=== PATIENT | male | born 1970 | race Caucasian/White ===

== ENCOUNTER 2021-11-11 04:09 | Emergency (ER) | payer OTHER, SELFPAY ==
--- NOTE | ~2021-11-11 | CT_ITS ---
EXAMINATION: CT abdomen pelvis wo con DATE: 11/11/2021 09:20 INDICATION: Left flank pain. TECHNIQUE: Computed tomography (CT) of the abdomen and pelvis was performed without intravenous contr ast. Automated exposure control and iterative reconstruction technique were employed. The dose-length product was 1457.67 mGy-cm. COMPARISON: CT abdomen and pelvis 04/20/2017 FINDINGS: The visualized portions of the lung bases demonstrate minimal atelectasis. No pleural effus ion. The heart size is normal. No pericardial effusion. There is a small sliding hiatal hernia. There is diffuse hepatic steatosis. The gallbladder, spleen, pancreas, and adrenal glands are normal. Ther e are two 2 mm stones in left kidney. There are 5 stones in left kidney measuring up to 2 mm. There i s mild left hydronephrosis and hydroureter. There is a 2 mm stone at left ureterovesicular junction. There is diverticulosis of the colon without evidence of diverticulitis. There are no dilated loops o f bowel. The appendix is normal. There are no pathologically enlarged lymph nodes. There is no free i ntraperitoneal fluid. There is dextrocurvature of thoracolumbar spine. There is mild thoracolumbar sp ondylosis. There are hemangiomas in L1 and L3 vertebral bodies. IMPRESSION: 1. 2 mm stone at left ureterovesicular junction with mild left hydronephrosis and hydroureter. 2. Small bilateral nonobstructing kidney stones. Reviewed, dictated and finalized at location A. FING ADMINISTRATOR IMPRESSION: 1. 2 mm stone at left ureterovesicular junction with mild left hydronephrosis a nd hydroureter. 2. Small bilateral nonobstructing kidney stones.
[2021-11-11 04:13] VITALS: BP 138/105; PULSE 67; RESP 18; TEMP 36.3; O2SAT 97
[2021-11-11 06:33] VITALS: BP 128/94; PULSE 83; RESP 18; O2SAT 98
[2021-11-11 08:24] VITALS: BP 139/101; PULSE 77; RESP 18; TEMP 36.9; O2SAT 99
[2021-11-11] MEDS: SODIUM CHLORIDE 0.9% IV 1,000 ML 999 ML IV CONT (09:11)
[2021-11-11] MEDS: KETOROLAC 30 MG/ML VIAL (*BKC) IV PUSH (09:11)
[2021-11-11] MEDS: ONDANSETRON INJ 4 MG/2 ML VIAL IV PUSH (09:11)
[2021-11-11 09:25] LABS: Basophils Absolute Auto 0.1 K/mm3 (0.0-0.1); Basophils Percent Auto 0.5 % (0.2-1.2); Eosinophils Absolute Auto 0.1 K/mm3 (0-0.3); Eosinophils Percent Auto 1.2 % (0-4.4); Hematocrit 45.1 % (42.0-52.0); Hemoglobin 15.6 g/dL (14.0-18.0); Immature Granulocyte Absolute 0.08 K/mm3 (0.00-0.031); Immature Granulocyte Percent A 0.7 % (0-0.5); Lymphocytes Absolute Auto 3.49 K/mm3 (0.9-3.2); Lymphocytes Percent Auto 30.5 % (18.3-44.2); Mean Corpuscular HGB Conc 34.6 g/dl (32-36); Mean Corpuscular Hemoglobin 30.5 pg (26-34); Mean Corpuscular Volume 88.1 fl (80-100); Monocytes Absolute Auto 1.7 K/mm3 (0.1-0.6); Monocytes Percent Auto 14.4 % (2.6-8.5); Neutrophils Percent Auto 52.7 % (45.5-73.1); Platelet Count Result 308 k/mm3 (150-375); Red Blood Count 5.12 M/mm3 (4.6-6.20); Red Cell Distribution Width 13.1 % (11.5-14.5); White Blood Count 11.5 K/mm3 (4.5-10.0)
[2021-11-11 09:35] LABS: Alanine Aminotransferase 47 U/L (4-50); Albumin Level 4.5 g/dL (3.5-5.1); Alkaline Phosphatase 118 U/L (38-126); Anion Gap 13 mmol/L (8-16); Aspartate Amino Transferase 32 U/L (17-59); Bilirubin,Total 0.8 mg/dL (0.2-1.3); Blood Urea Nitrogen 14 mg/dL (9-20); Calcium 9.5 mg/dL (8.4-10.2); Carbon Dioxide 24 mmol/L (22-30); Chloride 99 mmol/L (98-107); Estimated CRCL calculation 99 ml/min; Estimated Glomerular Filt Rate > 60; Glucose 121 mg/dL (65-110); Potassium 4.3 mmol/L (3.4-5.0); Sodium 136 mmol/L (137-145)
--- NOTE | 2021-11-11 11:10 | ED.GENADULT ---
HPI - General Adult General Chief complaint: Urogenital-Male Stated complaint: low back pain, hx of kidney stones Time Seen by Provider: 11/11/21 09:01 History of Present Illness HPI narrative: Patient is a 51-year-old male who presents ER with sudden onset flank pain. Left side. Radiating into the back and into groin. Unable to urinate. No dysuria or hematuria. No fevers chills or sweats. No alleviating factors. Denies fevers or chills or sweats. No nausea or vomiting. Related Data Allergies Allergy/AdvReac Type Severity Reaction Status Date / Time No Known Allergies Allergy Verified 11/11/21 08:27 Review of Systems Review of Systems: All systems reviewed & are unremarkable except as noted in HPI and below Constitutional: Constitutional: Denies chills, Denies fever(s) and Denies weakness ENT: Denies nasal congestion and Denies sore throat Gastrointestinal: Gastrointestinal: Reports abdominal pain, Denies diarrhea, Denies nausea and Denies vomiting Genitourinary: Genitourinary: Reports oliguria, Denies dysuria and Denies urinary frequency Musculoskeletal: Musculoskeletal: Denies back pain, Denies arthralgias and Denies joint swelling PMFSH Past Medical History Medical History (Updated 11/11/21 @ 12:26 by Shaq Maloney MD) Kidney stones Surgical History Surgical History (Updated 11/11/21 @ 11:11 by Shaq Maloney MD) No history of previous surgery Exam Narrative: GENERAL: Uncomfortable-appearing, well-nourished, and in mild distress. HEAD: Normocephalic, atraumatic. ENT: Mucous membranes moist. CHEST: Clear to auscultation. No respiratory distress. HEART: Regular rate and rhythm. Normal peripheral pulses. ABDOMEN: Soft, nontender, nondistended. EXTREMITIES: Normal range of motion. No edema. SKIN: Warm, dry, no rash. NEURO: Alert and oriented x3. PSYCH: Normal mood and affect. Course Reevaluation(s) Reevaluation #1: Pain significantly improved with Toradol. Patient being hydrated. Will provide us with a urine. Date: 11/11/21 Time: 11:12 Reevaluation #2: Discussed with urology. Will place on oral antibiotic and discharge home. Return precautions discussed. Date: 11/11/21 Time: 12:25 Vital Signs Vital signs: Vital Signs Temperature 97.4 F L 11/11/21 04:13 Pulse Rate 67 11/11/21 04:13 Respiratory Rate 18 11/11/21 04:13 Blood Pressure 138/105 H 11/11/21 04:13 Pulse Oximetry 97 11/11/21 04:13 Temperature 98.4 F 11/11/21 08:24 Pulse Rate 77 11/11/21 08:24 Respiratory Rate 18 11/11/21 08:24 Blood Pressure 139/101 H 11/11/21 08:24 Pulse Oximetry 99 11/11/21 08:24 Medical Decision Making Vital Signs Vital Signs: Vital Signs Temperature 97.4 F L 11/11/21 04:13 Pulse Rate 67 11/11/21 04:13 Respiratory Rate 18 11/11/21 04:13 Blood Pressure 138/105 H 11/11/21 04:13 Pulse Oximetry 97 11/11/21 04:13 Temperature 98.4 F 11/11/21 08:24 Pulse Rate 77 11/11/21 08:24 Respiratory Rate 18 11/11/21 08:24 Blood Pressure 139/101 H 11/11/21 08:24 Pulse Oximetry 99 11/11/21 08:24 Lab Data Result diagrams: 11/11/21 09:14 11/11/21 09:14 Labs: Lab Results 11/11/21 11/11/21 11/11/21 Range/Units 09:14 09:14 11:18 WBC 11.5 H (4.5-10.0) K/mm3 RBC 5.12 (4.6-6.20) M/mm3 Hgb 15.6 (14.0-18.0) g/dL Hct 45.1 (42.0-52.0) % MCV 88.1 (80-100) fl MCH 30.5 (26-34) pg MCHC 34.6 (32-36) g/dl RDW 13.1 (11.5-14.5) % Plt Count 308 (150-375) k/mm3 MPV 10.0 (7.4-10.4) fl Immature Gran % (Auto) 0.7 H (0-0.5) % Neut % (Auto) 52.7 (45.5-73.1) % Lymph % (Auto) 30.5 (18.3-44.2) % [place] % (Auto) 14.4 H (2.6-8.5) % Eos % (Auto) 1.2 (0-4.4) % Baso % (Auto) 0.5 (0.2-1.2) % Lymph # (Auto) 3.49 H (0.9-3.2) K/mm3 [place] # (Auto) 1.7 H (0.1-0.6) K/mm3 Eos # (Auto) 0.1 (0-0.3) K/mm3 Baso # (Auto) 0.1 (0.0-0.1) K/mm3 Abs
[2021-11-11 11:33] LABS: Add Urine Microscopic? YES; Appearance Urine Clear (Clear); Bacteria Urine Trace /hpf; Bilirubin Urine Negative (Negative); Blood Urine Negative (Negative); Color Urine Yellow (Yellow); Glucose Urine UA Negative (Negative); Ketones Urine 1+ mg/dL (Negative); Leukocyte Esterase Ur 3+ LEU/UL (Negative); Mucus Urine Rare /lpf; Nitrate Urine Negative (Negative); Protein Urine Negative (Negative); RBC Urine 21-50 /hpf (0-2); Specific Grav Ur 1.019 (1.001-1.035); Squamous Epithelial Cell Urine Rare /hpf (Few)
== END 2021-11-11 12:52 | disposition home or self-care (01) ==
PROVIDERS: Emergency Provider Emergency Medicine
DX: N20.1 Calculus of ureter (principal); N39.0 Urinary tract infection, site not specified
CPT/HCPCS: 36415; 74176; 80053; 81001; 85025; 87086; 96361; 96374; 96375; 99284; J1885; J2405; J7030

== ENCOUNTER 2024-03-29 10:07 | Observation (INO) | payer OTHER, SELFPAY ==
[2024-03-28 23:38] VITALS: BMI 37.6
--- NOTE | 2024-03-28 23:38 | ADMGEN ---
This patient, Josh Prabhakar, was admitted to Medical Room 347-. Patient/family oriented to hospital policies and general routines including ID bracelet, bed and alarms, visiting hours, pain management, procedures, bathroom and other care routines, personal items, smoking policy, room service/diet, and visiting hours. Information on how to activate the Rapid Response Team has been discussed. Patient/Family are encouraged to report perceived risks to care and to ask questions if they do not understand what they are told or what they should do.
[2024-03-29] VITALS (10 sets, daily range): BP systolic 92–152; BP diastolic 63–95; PULSE 63–82; RESP 12–20; TEMP 36.2–36.9; O2SAT 94–98
--- NOTE | ~2024-03-29 | CT_ITS ---
EXAMINATION: CT brain wo con DATE: 03/29/2024 09:48 INDICATION: Confusion. TECHNIQUE: Computed tomography (CT) of the head was performed without intravenous contrast. The mA wa s adjusted according to patient size. Iterative reconstruction technique was employed. The dose-lengt h product was 605.33 mGy-cm. COMPARISON: None FINDINGS: There are scattered areas of low attenuation in the cerebral white matter. There is no intr acranial hemorrhage, acute infarction, or abnormal intracranial mass lesion. The ventricles are mare l in size. The orbits are normal. There is mild mucosal thickening in the paranasal sinuses. The mast oid air cells are normal. IMPRESSION: 1. Mild nonspecific cerebral white matter disease, which likely represents chronic small vessel ische brendon disease. Reviewed, dictated and finalized at location A. IMPRESSION: 1. Mild nonspecific cerebral white matter disease, which likely represents donor relations manager janell small vessel ischemic disease.
--- NOTE | ~2024-03-29 | XR_ITS ---
EXAMINATION: XR retrograde pyelo w/stent LT DATE: 03/29/2024 12:57 INDICATION: Left ureteral stone. TECHNIQUE: 8 intraoperative fluoroscopic views of the abdomen and pelvis were obtained. I was not pre sent. Fluoroscopy exposure time was 71 seconds. COMPARISON: CT abdomen and pelvis 03/28/2024 FINDINGS: The left-sided retrograde pyelogram demonstrates mild left hydronephrosis and hydroureter. The final images demonstrate a left internal ureteral stent in expected position. IMPRESSION: 1. Mild left hydronephrosis and hydroureter. 2. Left internal ureteral stent in expected position. Reviewed, dictated and finalized at location A.
--- NOTE | 2024-03-29 00:02 | PM.IMHP ---
H&P: HPI History of Present Illness Date/Time: 03/29/24 00:02 Chief Complaint: back pain Narrative: patient is 63-year-old with history of hypertension history of kidney stones came to the hospital complaining of left flank pain patient was seen in urgent care center where patient's urine showed multiple rbc's with few WBCs patient's CT of the pelvis showed mild hydronephrosis patient was treated with pain control and nausea medications. No previous history of stones no fever chills nausea vomiting diarrhea hematemesis hemoptysis of dizziness with patient being seen by Dr. Langston with Urology notified at the time of transfer from [place] last Review of Systems Review of Systems: All systems reviewed & are unremarkable except as noted in HPI and below PMFSH Past Medical History Medical History (Updated 03/29/24 @ 00:05 by Norm Warner MD) Kidney stones Urinary tract infection Surgical History Surgical History (Updated 11/11/21 @ 11:11 by Shaq Maloney MD) No history of previous surgery Family History Family History (Updated 03/28/24 @ 23:59 by Irma Acuna RN) Father Depression Social History Social History Smoking packs per day: 0.3 Smoking cigarettes per day: 6.0 Years smoked: 5 Smoking pack-years: 1.50 Smoking status: Former smoker Tobacco type: cigarettes Alcohol intake: current Drinks per week: 1 Substance use: never Substance use type: does not use Do You Feel Safe in your Home?: Yes Lack of Transportation: No Lack of Food: Never True Current Housing: I Have Housing Concerned About Future Housing: No Difficulty Paying Gas/Electric Bills: No Difficulty Paying for Meds: No Currently Unemployed: No Education: Bachelor's Degree Difficulty w/ Childcare or Family Care: No Spiritual care concerns: No Meds Home Medications and Allergies Home Medications Medication Instructions Recorded Confirmed Type meloxicam 7.5 mg tablet 7.5 mg PO DAILY 03/28/24 03/28/24 History Allergies Allergy/AdvReac Type Severity Reaction Status Date / Time hydromorphone [From Dilaudid] AdvReac Confusion Verified 03/28/24 23:50 tramadol AdvReac Nausea and Verified 03/28/24 23:49 Vomiting Exam Narrative: GENERAL: Well appearing, no acute distress. HEAD: Normocephalic, atraumatic. NECK: Supple. No adenopathy, no masses. RESPIRATORY: respirations nonlabored. , no rales, wheezing. CARDIOVASCULAR: Regular rate and rhythm without murmurs, . Peripheral pulses 2+ and equal bilaterally. ABDOMINAL: Soft, nontender, nondistended, no hepatosplenomegaly. Normoactive BS. MUSCULOSKELETAL: no Epigastric and no hypochondrial tenderness SKIN: Warm, dry, NEURO: A&O X3. Moves all extremities Assessment and Plan Assessment and plan (1) Hydronephrosis: Code(s): N13.30 - Unspecified hydronephrosis Status: Acute Plan renal calculi/ hydronephrosis blood culture, Urine cultures and sensitivity. Continue IV hydration. Monitor CBC CMP monitor for sepsis. Monitor vital signs Start antibiotics IV levofloxacin Start probiotics to prevent antibiotic induced diarrhea Monitor for obstructive uropathy and pyelonephritis Dr. Hurtado urology consulted notified transfer. patient pain urology intervention in the morning currently patient well-controlled a uncomfortable will keep patient NPO history of hypertension controlled on diet Quality DVT prophylaxis. SCDs GI prophylaxis. All records reviewed Discussed plan of care with the nursing staff and with the patient in detail. Answered all questions and concerns from the patient. All labs have been reviewed. Code status updated dictation may have been done utilizing a voice recognition system. Attempts have been made to correct errors. However, there may be uncorrected grammatical, spelling, and recognition errors present.
[2024-03-29 00:43] LABS: Basophils Percent Auto 0.3 % (0.2-1.2); Eosinophils Percent Auto 0.1 % (0-4.4); Hematocrit 46.9 % (42.0-52.0); Hemoglobin 15.9 g/dL (14.0-18.0); Immature Granulocyte Absolute 0.07 K/mm3 (0.00-0.031); Immature Granulocyte Percent A 0.4 % (0-0.5); Lymphocytes Absolute Auto 3.06 K/mm3 (0.9-3.2); Lymphocytes Percent Auto 19.1 % (18.3-44.2); Mean Corpuscular HGB Conc 33.9 g/dl (32-36); Mean Corpuscular Hemoglobin 29.9 pg (26-34); Mean Corpuscular Volume 88.2 fl (80-100); Mean Platelet Volume 10.2 fl (7.4-10.4); Monocytes Absolute Auto 1.5 K/mm3 (0.1-0.6); Monocytes Percent Auto 9.3 % (2.6-8.5); Neutrophils Absolute Auto 11.3 K/mm3 (1.3-6.7); Neutrophils Percent Auto 70.8 % (45.5-73.1); Platelet Count Result 288 k/mm3 (150-375); Red Blood Count 5.32 M/mm3 (4.6-6.20); Red Cell Distribution Width 13.4 % (11.5-14.5)
[2024-03-29 00:53] LABS: Alanine Aminotransferase 36 U/L (6-50); Albumin Level 4.4 g/dL (3.5-5.1); Alkaline Phosphatase 87 U/L (38-126); Anion Gap 8 mmol/L (4-12); Aspartate Amino Transferase 31 U/L (17-59); Bilirubin,Total 0.6 mg/dL (0.2-1.3); Blood Urea Nitrogen 21 mg/dL (9-20); Carbon Dioxide 22 mmol/L (22-30); Chloride 105 mmol/L (98-107); Estimated CRCL calculation 79 ml/min; Estimated Glomerular Filt Rate 57; Glucose 106 mg/dL (65-110); Potassium 4.2 mmol/L (3.4-5.0); Sodium 135 mmol/L (137-145)
[2024-03-29] MEDS: SODIUM CHLORIDE 0.45% 1,000 ML 100 ML IV CONT ×2 (01:04→21:10)
[2024-03-29] MEDS: levoFLOXacin 750 MG/D5W 150 ML 750 MG/150 ML BAG 100 MG IVPB (01:05)
--- NOTE | 2024-03-29 01:53 | PC.NURSE ---
Pt is getting increasingly more confused. He doesnt know why hes here, how he got here, the yr ect. After trying to reorient him the whole conversation starts over. This continues repeatedly. At [address] Warner to update him of my concerns. I also called his at 0149 to see if this had happened before. She stated that it has not. Will continue to monitor.
[2024-03-29] MEDS: ACETAMINOPHEN 325 MG TABLET 650 MG PO (02:26)
--- NOTE | 2024-03-29 09:19 | PC.NURSE ---
Patient oriented on assessment but seems to have confusion about overnight events such as transportation to the hospital and why he is here. Assessment is negative otherwise. Classroom Paraprofessional reached out to hospitalistElsy. Head CT has been ordered
--- NOTE | 2024-03-29 09:23 | WPDURCON ---
Assessment and Plan Assessment and plan (1) Left ureteral stone: Code(s): N20.1 - Calculus of ureter Status: Acute Assessment and Plan: 5 mm distal left ureteral stone with [id number] hydronephrosis. Proceed with cystoscopy, left ureteroscopy, possible left stone extraction, possible laser lithotripsy, and possible left stent placement this afternoon with Dr. Hurtado. Continue NPO diet. (2) Hydronephrosis: Qualifiers: Hydronephrosis type: with ureteral calculous obstruction Qualified Code(s): N13.2 - Hydronephrosis with renal and ureteral calculous obstruction Code(s): N13.30 - Unspecified hydronephrosis Status: Acute Assessment and Plan: Left hydronephrosis secondary to above. Urology Consult Note HPI Date Seen: 03/29/24 Requesting Physician: Norm Warner MD Primary Care Provider: PHYSICIAN NOT ON STAFF Consult Narrative Narrative: Josh Prabhakar is a 53 year old male with a history of multiple prior kidney stones which have all passed spontaneously who initially presented to outside hospital on 03/28/2024 with acute onset of left flank pain with associated vomiting and dysuria. A CT of his abdomen/pelvis was completed at outside facility which demonstrated an obstructing 5 mm distal left ureteral stone with [id number] hydronephrosis as well as multiple nonobstructing left renal stones. His urinalysis had trace leukocytes and 2+ blood. His creatinine was within normal limits at 1.25. White blood cell count was within normal limits at 9.37. A urine culture was obtained and is pending at this time. Patient had intractable pain, and therefore was transferred to this facility for urologic evaluation. At the time of my evaluation, the patient is resting comfortably. He endorses some persistent left flank pain but denies nausea, vomiting, fever, chills. Denies dysuria. He does seem to be having some confusion regarding events of hospitalization, though he answers all questions appropriately. He is afebrile and his vital signs are stable. His white blood cell count is increased to 16.0. Creatinine remains stable. Given his persistent pain, will proceed with cystoscopy, left ureteroscopy with possible laser lithotripsy, possible stone extraction and left ureteral stent placement. Discussed risks and benefits of procedure with patient and he agrees to proceed. Review of Systems Review of Systems: All systems reviewed & are unremarkable except as noted in HPI and below PMFSH Past Medical History Medical History (Updated 03/29/24 @ 09:32 by Yamilex Mac PA-C) Kidney stones Urinary tract infection Surgical History Surgical History (Updated 11/11/21 @ 11:11 by Shaq Maloney MD) No history of previous surgery Family History Family History (Updated 03/28/24 @ 23:59 by Irma Acuna RN) Father Depression Social History Social History Smoking packs per day: 0.3 Smoking cigarettes per day: 6.0 Years smoked: 5 Smoking pack-years: 1.50 Smoking status: Former smoker Tobacco type: cigarettes Alcohol intake: current Drinks per week: 1 Substance use: never Substance use type: does not use Do You Feel Safe in your Home?: Yes Lack of Transportation: No Lack of Food: Never True Current Housing: I Have Housing Concerned About Future Housing: No Difficulty Paying Gas/Electric Bills: No Difficulty Paying for Meds: No Currently Unemployed: No Education: Bachelor's Degree Difficulty w/ Childcare or Family Care: No Spiritual care concerns: No Meds Home Medications and Allergies Home Medications Medication Instructions Recorded Confirmed Type meloxicam 7.5 mg tablet 7.5 mg PO DAILY 03/28/24 03/28/24 History Allergies Allergy/AdvReac Type Severity Reaction Status Date / Time hydromorphone [From Dilaudid] AdvReac Confusion Verified 03/28/24 23:50 tramadol AdvReac Nausea and
--- NOTE | 2024-03-29 10:12 | PC.NURSE ---
Patients wedding ring, wallet and phone was locked in room closet while he is off floor. AMARI Lira witnessed.
[2024-03-29] MEDS: LACTATED RINGERS 1,000 ML 30 ML IV CONT (10:30)
--- NOTE | 2024-03-29 10:37 | PC.NURSE ---
Pt to pre-op via stretcher at this time.
--- NOTE | 2024-03-29 11:40 | WPDANESEPPF ---
Anes - Initial Pre Proc Eval Procedure: Operation Date: 03/29/24 12:15 Proposed Procedures p Cystoscopy, Left Ureteroscopy, Possible Left Retrograde Pyelogram, Possible Left Stone Extraction, Possible Left Stent Placement, Possible Holmium Laser Procedure - Neda Rubin MD Date/Time: 03/29/24 11:40 Surgeon: Norm Warner MD Pre Op Diagnosis: Kidney stone intractable pain Patient Data Age: 53 Gender: M Height: 1.83 m Weight: 126 kg Last Vital Signs Temp 98.2 F 03/29/24 06:00 Pulse 71 03/29/24 06:00 Resp 20 03/29/24 06:00 BP 145/77 H 03/29/24 06:00 Pulse Ox 98 03/29/24 06:00 O2 Del Method Room Air 03/29/24 02:35 Allergies Allergy/AdvReac Type Severity Reaction Status Date / Time hydromorphone [From Dilaudid] AdvReac Confusion Verified 03/28/24 23:50 tramadol AdvReac Nausea and Verified 03/28/24 23:49 Vomiting Home Medications Medication Instructions Recorded Confirmed Type meloxicam 7.5 mg tablet 7.5 mg PO DAILY 03/28/24 03/28/24 History Laboratory Tests 03/29/24 00:31 WBC 16.0 H K/mm3 (4.5-10.0) RBC 5.32 M/mm3 (4.6-6.20) Hgb 15.9 g/dL (14.0-18.0) Hct 46.9 % (42.0-52.0) MCV 88.2 fl (80-100) MCH 29.9 pg (26-34) MCHC 33.9 g/dl (32-36) RDW 13.4 % (11.5-14.5) Plt Count 288 k/mm3 (150-375) MPV 10.2 fl (7.4-10.4) Immature Gran % (Auto) 0.4 % (0-0.5) Neut % (Auto) 70.8 % (45.5-73.1) Lymph % (Auto) 19.1 % (18.3-44.2) [place] % (Auto) 9.3 H % (2.6-8.5) Eos % (Auto) 0.1 % (0-4.4) Baso % (Auto) 0.3 % (0.2-1.2) Lymph # (Auto) 3.06 K/mm3 (0.9-3.2) [place] # (Auto) 1.5 H K/mm3 (0.1-0.6) Eos # (Auto) 0.0 K/mm3 (0-0.3) Baso # (Auto) 0.0 K/mm3 (0.0-0.1) Abs Immat Gran (auto) 0.07 H K/mm3 (0.00-0.031) Absolute Neuts (auto) 11.3 H K/mm3 (1.3-6.7) Absolute Nucleated RBC 0.000 K/mm3 (0.0-0.012) Nucleated RBC % 0.0 % (0.0-0.2) Sodium 135 L mmol/L (137-145) Potassium 4.2 mmol/L (3.4-5.0) Chloride 105 mmol/L (98-107) Carbon Dioxide 22 mmol/L (22-30) Anion Gap 8 mmol/L (4-12) BUN 21 H mg/dL (9-20) Creatinine 1.30 mg/dL (0.7-1.3) Estim Creat Clear Calc 79 ml/min Estimated GFR 57 L (59 - ) Glucose 106 mg/dL (65-110) Calcium 9.0 mg/dL (8.4-10.2) Total Bilirubin 0.6 mg/dL (0.2-1.3) AST 31 U/L (17-59) ALT 36 U/L (6-50) Alkaline Phosphatase 87 U/L (38-126) Total Protein 8.0 g/dL (6.3-8.2) Albumin 4.4 g/dL (3.5-5.1) Patient hx anesthesia problems: none Family hx anesthesia problems: none Results Review: All pre-operative results and documents have been reviewed as part of the pre-operative evaluation. [facility] Past Medical History Medical History Kidney stones Urinary tract infection Surgical History Surgical History No history of previous surgery Family History Family History Father Depression Social History Social History Smoking packs per day: 0.3 Smoking cigarettes per day: 6.0 Years smoked: 5 Smoking pack-years: 1.50 Smoking status: Former smoker Tobacco type: cigarettes Alcohol intake: current Drinks per week: 1 Substance use: never Substance use type: does not use Do You Feel Safe in your Home?: Yes Lack of Transportation: No Lack of Food: Never True Current Housing: I Have Housing Concerned About Future Housing: No Difficulty Paying Gas/Electric Bills: No Difficulty Paying for Meds: No Currently Unemployed: No Education: Bachelor's Degree Difficulty w/ Childcare or Family Care: No Spiritual care concerns: No Anes - Eval Final PreProcedu
--- NOTE | 2024-03-29 12:07 | WPDHPUPDATE1 ---
History and Physical Update Update Date/Time: 03/29/24 12:07 History and Physical has been reviewed, including an updated exam of the patient. There are NO changes in the patient's condition. Risks, benefits, and alternatives have been discussed and questions answered. Patient agrees to proceed with procedure.
--- NOTE | 2024-03-29 12:53 | W.PM.PROC2 ---
Procedure Note - Detailed Date of Procedure 03/29/24 Pre-op Diagnosis left ureteral stone intractable pain Post-op Diagnosis Same Procedure Performed Cystoscopy, left retrograde pyelogram, ureteroscopy, stone extraction, left ureteral stent insertion Surgeon Neda Rubin MD Anesthesia General Findings 5mm mid/distal ureteral stone Description of Procedure Informed consent was obtained. Patient taken the operating. Given preoperative IV antibiotics on the floor. He was induced with anesthesia. He was prepped and draped in normal sterile fashion in the dorsal lithotomy position. We inserted a 22 F cystoscope the urethra into the bladder. Inspecting the bladder revealed no mucosal abnormalities. The patient had bilateral orthotopic ureteral orifices. Cannulated the left ureteral orifice with a wire and then dilate with an 810 coaxial dilator. We then advanced a semi rigid ureteroscope into the ureter and identified the stone present in the mid/distal ureter at the level of the iliac vessels. The stone was grasped a Zero tip basket and removed in 1 piece. We then reinserted the ureteral scope inspected the distal 2/3 of the ureter without residual stone present. Retrograde pyelogram was performed this showed moderate left hydroureteronephrosis down to the level of previous stone impaction, there was no extravasation. We elected to place a stent. A 4.8 F variable length stent was placed with a curl in renal pelvis and from the bladder. Bladder was emptied with 10cc lidocaine. Patient was awakened and taken to recovery room stable condition Planned stent removal in 1 to 2 weeks. Urine Output 800 Pathology Yes Complications No immediate complications Condition Stable Disposition PACU
--- NOTE | 2024-03-29 14:05 | PM.IMPN ---
Progress Note: A&P Assessment and Plan (1) Hydronephrosis: Qualifiers: Hydronephrosis type: with ureteral calculous obstruction Qualified Code(s): N13.2 - Hydronephrosis with renal and ureteral calculous obstruction Code(s): N13.30 - Unspecified hydronephrosis Status: Acute Assessment and Plan: CT abdomen pelvis showing left 2 mm UVJ stone with mild hydronephrosis and hydroureter. Blood culture no growth to date. Urine culture pending Continue IV hydration. Urology consulted and planned for lithotripsy with stent placement this afternoon Analgesics p.r.n. (2) Abnormal urinalysis: Code(s): R82.90 - Unspecified abnormal findings in urine Status: Acute Assessment and Plan: UA with 3+ leukocyte esterase, 21-50 rbc's and 10-15 wbc's. Patient given dose of Levaquin around midnight of 03/29, then transitioned to Rocephin and was given a dose of this on 03/29 at 9am Urine culture pending Blood culture no growth to date. No previous urine cultures for comparison. Adjust antibiotic therapy to culture results. Subjective Date/time seen: 03/29/24 14:05 Interval history: Patient is still experiencing left flank pain but denies any dysuria or hematuria. He has not had any difficulty starting to urinate or with urinary retention. He does have history of kidney stones and states he gets up approximately every 6 months. He has been hospitalized before for this. Plan for lithotripsy greater this afternoon. Exam Narrative: GENERAL: Comfortable, no acute distress HENMT: moist mucous membranes EYES: EOM intact b/l NECK: no lymphadenopathy RESPIRATORY: clear to auscultation, no increased respiratory effort CARDIO: Regular rate and rhythm GI: soft, Left flank tenderness, bowel sounds present SKIN/EXTREMITIES: no rashes, no edema, no redness or tenderness NEURO: PROM intact, answers questions appropriately, A&O x4 Objective Data Vital Signs Vital Signs: Vital Signs - 24 hr 03/29/24 00:52 03/29/24 02:35 03/29/24 06:00 Temperature 97.2 F L 98.2 F Pulse Rate 82 71 Respiratory Rate 20 20 Blood Pressure 152/95 H 145/77 H Pulse Oximetry 98 98 Oxygen Delivery Room Air Oxygen Flow Rate 03/29/24 11:46 03/29/24 12:59 03/29/24 13:10 Temperature 98.3 F 98.5 F Pulse Rate 71 63 63 Respiratory Rate 14 19 17 Blood Pressure 144/94 H 92/63 L 107/65 Pulse Oximetry 97 95 97 Oxygen Delivery Room Air Simple Face Mask Simple Face Mask Oxygen Flow Rate 8 8 03/29/24 13:25 03/29/24 13:42 03/29/24 13:55 Temperature Pulse Rate 63 63 76 Respiratory Rate 16 16 12 Blood Pressure 110/81 120/86 138/94 H Pulse Oximetry 97 97 94 Oxygen Delivery Simple Face Mask Simple Face Mask Room Air Oxygen Flow Rate 8 8 Intake/Output Intake/Output: Intake & Output 03/26/24 03/27/24 03/28/24 03/29/24 23:59 23:59 23:59 23:59 Intake Total 100 Output Total 1979 Balance -1880 Meds/Results Medications: Active Medications Generic Name Dose Route Start Last Admin Trade Name Freq PRN Reason Stop Dose Admin Acetaminophen 650 mg 03/28/24 23:59 03/29/24 02:26 Acetaminophen 325 Mg Tablet PO 650 mg Q4H PRN Administration Mild Pain (1-3) or Fever Docusate Sodium 100 mg 03/29/24 09:00 03/29/24 09:18 Docusate Sodium 100 Mg Capsule PO Not Given Q12HR LYNDA Fentanyl Citrate 25 mcg 03/29/24 11:55 Fentanyl Citrate Inj (*Crx) 100 Mcg/2 Ml Vial IV PUSH Q2M PRN Pain Sodium Chloride 1,000 mls @ 100 mls/hr 03/28/24 23:45 03/29/24 01:04 Sodium Chloride 0.45% IV CONT 100 mls/hr .Q10H LYNDA Administration Ceftriaxone Sodium 1 gm in 50 mls @ 100 mls/hr 03/29/24 09:00 03/29/24 10:02 Rocephin 1 Gm/Ns 50 Ml IVPB 100 mls/hr Q24H LYNDA Administration Lactated Ringer's 1,000 mls @ 30 mls/hr 03/29/24 11:55 03/29/24 14:04 Lr - Lactated Ringers Iv IV CONT Infused .Q24H LYNDA Infu
[2024-03-29] MEDS: DOCUSATE SODIUM 100 MG CAPSULE PO (21:10)
[2024-03-30] MEDS: SODIUM CHLORIDE 0.45% 1,000 ML 100 ML IV CONT (05:43)
[2024-03-30 06:00] VITALS: BP 142/84; PULSE 64; RESP 18; TEMP 36.2; O2SAT 97
[2024-03-30 06:03] LABS: Hematocrit 43.7 % (42.0-52.0); Hemoglobin 14.4 g/dL (14.0-18.0); Mean Corpuscular Hemoglobin 30.1 pg (26-34); Mean Corpuscular Volume 91.2 fl (80-100); Mean Platelet Volume 10.3 fl (7.4-10.4); Platelet Count Result 265 k/mm3 (150-375); Red Blood Count 4.79 M/mm3 (4.6-6.20); Red Cell Distribution Width 13.7 % (11.5-14.5); White Blood Count 12.6 K/mm3 (4.5-10.0)
[2024-03-30 06:09] LABS: Anion Gap 5 mmol/L (4-12); Blood Urea Nitrogen 18 mg/dL (9-20); Calcium 8.7 mg/dL (8.4-10.2); Carbon Dioxide 26 mmol/L (22-30); Chloride 106 mmol/L (98-107); Estimated CRCL calculation 101 ml/min; Estimated Glomerular Filt Rate > 60; Glucose 107 mg/dL (65-110); Potassium 4.2 mmol/L (3.4-5.0); Sodium 137 mmol/L (137-145)
[2024-03-30] MEDS: DOCUSATE SODIUM 100 MG CAPSULE PO (09:08)
[2024-03-30] MEDS: ACETAMINOPHEN 325 MG TABLET 650 MG PO (09:10)
--- NOTE | 2024-03-30 12:25 | WPDUROPN2 ---
Progress Note: A&P Assessment and Plan (1) Left ureteral stone: Code(s): N20.1 - Calculus of ureter Status: Acute Assessment and Plan: 5 mm distal left ureteral stone with [id number] hydronephrosis. Underwent cystoscopy, left retrograde pyelogram, ureteroscopy, stone extraction, and left ureteral stent insertion on 03/29/2024. He tolerated this procedure well. Begin oxybutynin as needed for bladder spasms. Okay for discharge from urologic standpoint. Will follow-up as an outpatient in 2 weeks for stent removal. (2) Hydronephrosis: Qualifiers: Hydronephrosis type: with ureteral calculous obstruction Qualified Code(s): N13.2 - Hydronephrosis with renal and ureteral calculous obstruction Code(s): N13.30 - Unspecified hydronephrosis Status: Acute Assessment and Plan: Secondary to above. Status post left ureteral stent placement. (3) Calculus of left kidney: Code(s): N20.0 - Calculus of kidney Status: Acute Assessment and Plan: Multiple nonobstructing left renal stones noted on imaging. Patient reports extensive stone history. Will benefit from metabolic evaluation as an outpatient. Subjective Subjective Date/Time Seen: 03/30/24 12:25 Interval history: Josh is feeling well today. Tolerated procedure well yesterday. Complains of bladder spasms and stent discomfort. Complains of some mild soreness of his left side. Denies dysuria or hematuria. He denies nausea, vomiting fever, or chills. He is tolerating his diet. He remains afebrile and his vital signs are stable. Review of Systems Review of Systems: All systems reviewed & are unremarkable except as noted in HPI and below Exam Narrative: General: Awake, alert, comfortable, no acute distress HEENT: Normocephalic, atraumatic, sclerae anicteric Respiratory: Normal respiratory effort, no accessory muscle use Abdomen: Nondistended, soft, nontender Skin: Normal coloration, warm and dry Neurologic: No focal neuro deficits noted Psychiatric: Appropriate mood and affect, judgment and insight intact Objective Data Vital Signs Vital Signs: Vital Signs - 24 hr 03/29/24 12:59 03/29/24 13:10 03/29/24 13:25 Temperature 98.5 F Pulse Rate 63 63 63 Respiratory Rate 19 17 16 Blood Pressure 92/63 L 107/65 110/81 Pulse Oximetry 95 97 97 Oxygen Delivery Simple Face Mask Simple Face Mask Simple Face Mask Oxygen Flow Rate 8 8 8 03/29/24 13:42 03/29/24 13:55 03/29/24 14:18 Temperature 97.8 F Pulse Rate 63 76 67 Respiratory Rate 16 12 18 Blood Pressure 120/86 138/94 H 135/78 Pulse Oximetry 97 94 97 Oxygen Delivery Simple Face Mask Room Air Oxygen Flow Rate 8 03/29/24 20:00 03/29/24 22:00 03/30/24 06:00 Temperature 97.4 F L 97.2 F L Pulse Rate 73 64 Respiratory Rate 18 18 Blood Pressure 138/93 H 142/84 H Pulse Oximetry 96 97 Oxygen Delivery Room Air Oxygen Flow Rate 03/30/24 08:00 Temperature Pulse Rate Respiratory Rate Blood Pressure Pulse Oximetry Oxygen Delivery Room Air Oxygen Flow Rate Intake/Output Intake/Output: Intake & Output 03/27/24 03/28/24 03/29/24 03/30/24 23:59 23:59 23:59 23:59 Intake Total 1890 1495 Output Total 3780 Balance -1890 1495 Meds/Results Medications: Active Medications Generic Name Dose Route Start Last Admin Trade Name Freq PRN Reason Stop Dose Admin Acetaminophen 650 mg 03/28/24 23:59 03/30/24 09:10 Acetaminophen 325 Mg Tablet PO 650 mg Q4H PRN Administration Mild Pain (1-3) or Fever Docusate Sodium 100 mg 03/29/24 09:00 03/30/24 09:08 Docusate Sodium 100 Mg Capsule PO 100 mg Q12HR LYNDA Administration Fentanyl Citrate 25 mcg 03/29/24 11:55 Fentanyl Citrate Inj (*Crx) 100 Mcg/2 Ml Vial IV PUSH Q2M PRN Pain Sodium Chloride 1,000 mls @ 100 mls/hr 03/28/24 23:45 03/30/24 09:08 Sodium Chloride 0.45% IV CONT Not Given .
--- NOTE | 2024-03-30 13:39 | PM.DS ---
DS: Admitting Diagnosis Discharge Date 03/30/24 Admitting Diagnosis Kidney stone DS: Discharge Diagnosis Discharge Diagnosis (1) Left ureteral stone: Code(s): N20.1 - Calculus of ureter Status: Acute Assessment and Plan: 5 mm distal left ureteral stone with [id number] hydronephrosis. Underwent cystoscopy, left retrograde pyelogram, ureteroscopy, stone extraction, and left ureteral stent insertion on 03/29/2024. He tolerated this procedure well. Begin oxybutynin as needed for bladder spasms. Okay for discharge from urologic standpoint. Will follow-up as an outpatient in 2 weeks for stent removal. (2) Hydronephrosis: Qualifiers: Hydronephrosis type: with ureteral calculous obstruction Qualified Code(s): N13.2 - Hydronephrosis with renal and ureteral calculous obstruction Code(s): N13.30 - Unspecified hydronephrosis Status: Acute Assessment and Plan: Secondary to above. Status post left ureteral stent placement. (3) Calculus of left kidney: Code(s): N20.0 - Calculus of kidney Status: Acute Assessment and Plan: Multiple nonobstructing left renal stones noted on imaging. Patient reports extensive stone history. Will benefit from metabolic evaluation as an outpatient. DS: Summary Hospital Course Hospital Course: Patient is 53-year-old with history of hypertension history of kidney stones came to the hospital complaining of left flank pain patient was seen in urgent care center where patient's urine showed multiple rbc's with few WBCs patient's CT of the pelvis showed mild hydronephrosis patient was treated with pain control and nausea medications.? patient arrived to the hospital on 03/29/2024 after being transferred to [facility] for urology evaluation. CT abdomen pelvis showed 2 mm UVJ stone with mild hydronephrosis and hydroureter. Urology was consulted on the case. Patient had cystoscopy, left retrograde pyelogram, ureteroscopy, stone extraction and left ureteral stent insertion. Patient's urine did appear infected and will treat with antibiotics. Urine culture pending. Patient did well postoperatively. He is having some burning with urination but otherwise doing well. His labs and vital signs are stable and he is medically clear for discharge this time. Time Spent with Patient Time attestation: Total time spent providing and/or coordinating discharge services: Exam Narrative: GENERAL: Comfortable, no acute distress [facility]: moist mucous membranes EYES: EOM intact b/l NECK: no lymphadenopathy RESPIRATORY: clear to auscultation, no increased respiratory effort CARDIO: Regular rate and rhythm GI: soft, nontender, bowel sounds present SKIN/EXTREMITIES: no rashes, no edema, no redness or tenderness NEURO: PROM intact, answers questions appropriately, A&O x4 DS: Data Data Completed and Pending Pending studies at discharge: Pending at discharge 03/29/24 12:42 Surgical [PTH] Routine Labs on day of discharge: Labs from last 24 hours 03/30/24 05:31 WBC 12.6 H RBC 4.79 Hgb 14.4 Hct 43.7 MCV 91.2 MCH 30.1 MCHC 33.0 RDW 13.7 Plt Count 265 MPV 10.3 Sodium 137 Potassium 4.2 Chloride 106 Carbon Dioxide 26 Anion Gap 5 BUN 18 Creatinine 1.00 Estim Creat Clear Calc 101 Estimated GFR > 60 Glucose 107 Calcium 8.7 Preliminary micro results at discharge 03/29/24 00:31 Blood Culture - Preliminary Blood 03/29/24 00:31 Blood Culture - Preliminary Blood Discharge Plan Discharge Consulting providers: Neda Rubin Discharging Clinician: Elsy Perdue Patient Disposition: Home, Self-Care Activity: no preference Diet: regular Discharge Instructions: Medications: Cefdinir 300mg twice a day for 3 more days. Next dose tomorrow morning. Discharge instructions: Return to the emergency department if: Nausea vomiting, fever, difficulty urinating, blo
--- NOTE | 2024-04-04 07:29 | PC.NURSE ---
Urine cx is negative. JOSÉ Cervantes aware.
== END 2024-03-30 15:30 | disposition home or self-care (01) ==
PROVIDERS: Internal Medicine Critical Care Medicine; Urology; Admitting Provider Internal Medicine; Visit Provider Internal Medicine
PROC: (CPT 52352; principal; 2024-03-29 12:15)
DX: N13.2 Hydronephrosis with renal and ureteral calculous obstruction (principal); R82.90 Unspecified abnormal findings in urine; Z87.891 Personal history of nicotine dependence
CPT/HCPCS: 52332; 52352; 36415; 70450; 74420; 80048; 80053; 82365; 85025; 85027; 87040; 87086; 88300; A9270; C1769; C2617; G0378; J0696; J1100; J1170; J1956; J2250; J2405; J2704; J3010; J7120; Q9966